=== PATIENT | female | born 1975 | race African-American/Black ===

== ENCOUNTER 2016-07-14 17:53 | Emergency (ER) | payer OTHER ==
[~2016-07-14] VITALS: Ht 147.3 cm; Wt 61.7 kg
--- NOTE | ~2016-07-14 | EKG ---
[place] [address] [facility] [employer] [place] [address] ELECTROCARDIOGRAM REPORT Name: ALDAIR WARNER [id number] Admission: 07/14/16 Attend Phys: Discharge: 07/14/16 Date of : 71 Report #: [id number] THIS REPORT FOR: //name// [facility] ED Test Date: 2016-07-14 Test Time: 18:16:11 Pat Name: ALDAIR WARNER Department: Room: Gender: F [employer] Operator: MAX : 1975 Requested By: Braden Briseno Order Number: [id number] MD: Sundeep Pelletier Measurements Intervals [place] Rate: 86 P: 65 [place]: 177 QRS: 10 QRSD: 82 T: 34 QT: 372 QTc: 445 Interpretive Statements Sinus rhythm No significant abnormality Compared to ECG 11/27/2009 13:20:38 No significant change was found Electronically Signed On 07-15-2016 8:25:19 CDT by Sundeep Pelletier [email or web address] <ELECTRONICALLY SIGNED> By: Sundeep Pelletier MD, [facility] 07/15/16 0825 1816 181 Sundeep Pelletier MD, FACC /EPI
[~2016-07-14 17:53] MED LIST: ACETAMINOPHEN325 M1 OR; EPINEPHRINE0.1 MG/M1; IBUPROFEN 600600 M1; IBUPROFEN 600600 M1 PO; LORTAB 5 MG/5001 TA1; MULTI-VITAMIN1 EAC5 PO; NORCO 5-325 TA1 EACH PO; PRENATAL PO; PRILOSEC 20 MG20 MG PO; ZANTAC 150MG T150 M1 PO
[2016-07-14 19:01] LABS: ABSOLUTE NEUTROPHILS 3.2 thou/uL (1.4-8.2); BASOPHILS 1.2 % (0.0-2.0); EOSINOPHILS 1.3 % (0.0-3.0); HEMATOCRIT 34.8 % (37.0-47.0); LYMPHOCYTES 29.5 % (24.0-44.0); MANUAL DIFF NO; MCH 31.3 pg (26.0-34.0); MCHC 34.5 g/dL (28.0-37.0); MCV 90.5 fL (80.0-100.0); MONOCYTES 8.2 % (1.0-8.0); PLATELET COUNT 365 thou/uL (150-400); POLYS 59.8 % (36.0-66.0); RBC 3.84 mil/uL (4.20-5.00); RDW 14.5 % (10.5-14.5); WBC 5.3 thou/uL (4.0-11.0)
[2016-07-14] MEDS ORDERED: NORCO 5-325 TA1 EACH PO (19:37)
[2016-07-14] MEDS ORDERED: TIZANIDINE HCL4 MG PO (19:37)
[2016-07-14] MEDS ORDERED: IBUPROFEN 600600 M1 PO (19:37)
[2016-07-14 19:59] VITALS: BP 136/63
== END 2016-07-14 20:07 | disposition home or self-care (01) ==
LOC: ER 17:53
PROVIDERS: Nurse Practitioner
DX: S20.219A Contusion of unspecified front wall of thorax, initial encounter (principal); Z90.49 Acquired absence of other specified parts of digestive tract; Z98.890 Other specified postprocedural states; Z88.4 Allergy status to anesthetic agent; V89.2XXA Person injured in unspecified motor-vehicle accident, traffic, initial encounter; Y93.I9 Activity, other involving external motion; Y92.89 Other specified places as the place of occurrence of the external cause; Y99.8 Other external cause status